=== PATIENT | female | born 1980 | race Caucasian/White ===

== ENCOUNTER → 2020-06-06 | Outpatient (CLI) | payer OTHER ==
--- NOTE | 2020-06-06 16:54 | REP ---
INDICATION: PAIN, FOOSH COMPARISON: None. TECHNIQUE: Four views left wrist. FINDINGS: There is no acute fracture or dislocation. There appears to be an old fracture of the ulnar styloid process, versus an accessory ossicle at that location. The joint spaces are unremarkable. There are no other significant findings. IMPRESSION: No acute fracture or dislocation. Old avulsion fracture versus accessory ossicle at the ulnar styloid process. <Electronically signed by Sajan Martinez > 06/06/20 [id number]
== END ==
LOC: M WUC 11:53
PROVIDERS: ATTEND Physician Assistant
DX: M25.532 Pain in left wrist (principal); Z87.828 Personal history of other (healed) physical injury and trauma